=== PATIENT | male | born 1995 | race Two or more races ===

== ENCOUNTER 2020-08-03 19:58 | Emergency (ER) | payer OTHER ==
[~2020-08-03] VITALS: Ht 188 cm; Wt 95.3 kg
[2020-08-03 22:10] VITALS: BP 112/71
== END 2020-08-03 22:10 | disposition home or self-care (01) ==
LOC: ER 20:02
DX: S49.92XA Unspecified injury of left shoulder and upper arm, initial encounter (principal); M25.512 Pain in left shoulder; X58.XXXA Exposure to other specified factors, initial encounter; Y93.89 Activity, other specified; Y92.89 Other specified places as the place of occurrence of the external cause; Y99.8 Other external cause status
CPT/HCPCS: 73030